=== PATIENT | female | born 1990 | race African-American/Black ===

== ENCOUNTER 2019-10-30 01:07 | Emergency (ER) | payer MEDICAID ==
[~2019-10-30] VITALS: Ht 157.5 cm; Wt 59.1 kg
[2019-10-30 01:40] VITALS: BP 107/62
[2019-10-30] MEDS ORDERED: ACETAMINOPHEN 325MG TABLET PO ONE (02:00)
== END 2019-10-30 02:32 | disposition home or self-care (01) ==
LOC: ER 01:21
DX: O26.891 Other specified pregnancy related conditions, first trimester (principal); M54.2 Cervicalgia; M79.602 Pain in left arm; Z3A.14 14 weeks gestation of pregnancy
CPT/HCPCS: 81025; 99282